=== PATIENT | female | born 1990 | race Caucasian/White ===

== ENCOUNTER 2021-01-12 11:13 | Emergency (ER) | payer OTHER ==
[2021-01-12 12:18] LABS: HEMOGLOBIN 14.5 gm/dl (12.3-15.3); RED BLOOD COUNT 4.69 M/UL (4.00-5.10); WHITE BLOOD COUNT 6.9 K/UL (4.5-11.0)
[2021-01-12 12:38] LABS: BUN/CREATININE RATIO 9 (0-10)
== END 2021-01-12 18:27 | disposition home or self-care (01) ==
LOC: ER1 11:13
PROVIDERS: Emergency Medicine
DX: G40.909 Epilepsy, unspecified, not intractable, without status epilepticus (principal); Z20.822 Contact with and (suspected) exposure to COVID-19
CPT/HCPCS: 0240U; 71045; 80053; 80307; 81001; 83605; 84703; 85025; 85610; 85730; 93005; 96374; 99285; J1885; Q9967

== ENCOUNTER 2021-03-10 00:47 | Emergency (ER) | payer OTHER ==
[2021-03-10 01:37] LABS: HEMOGLOBIN 14.4 gm/dl (12.3-15.3); RED BLOOD COUNT 4.54 M/UL (4.00-5.10); WHITE BLOOD COUNT 10.2 K/UL (4.5-11.0)
[2021-03-10 01:54] LABS: BUN/CREATININE RATIO 14 (0-10)
[2021-03-10] MEDS ORDERED: KEPPRA500 MG PO (04:00)
== END 2021-03-10 04:11 | disposition home or self-care (01) ==
LOC: ER1 00:47
PROVIDERS: Family Medicine
DX: G40.909 Epilepsy, unspecified, not intractable, without status epilepticus (principal); Z79.899 Other long term (current) drug therapy
CPT/HCPCS: 70450; 80053; 80307; 81001; 84703; 85025; 93005; 99284

== ENCOUNTER 2021-03-24 08:13 | Emergency (ER) | payer OTHER ==
[~2021-03-24 08:13] MED LIST: KEPPRA500 MG PO
[2021-03-24 08:57] LABS: HEMOGLOBIN 13.1 gm/dl (12.3-15.3); RED BLOOD COUNT 4.14 M/UL (4.00-5.10); WHITE BLOOD COUNT 7.4 K/UL (4.5-11.0)
[2021-03-24 09:30] LABS: BUN/CREATININE RATIO 13 (0-10)
[2021-03-24] MEDS ORDERED: BENTYL 10MG CAP10 MG PO (11:01)
[2021-03-24] MEDS ORDERED: ZOFRAN ODT 4 MG4 MG PO (11:01)
[2021-03-24] MEDS ORDERED: IBU800 MG PO (11:01)
[2021-03-24] MEDS ORDERED: PEPCID20 MG PO (11:01)
== END 2021-03-24 11:30 | disposition home or self-care (01) ==
LOC: ER1 08:13
PROVIDERS: Nurse Practitioner
DX: R10.11 Right upper quadrant pain (principal); R10.12 Left upper quadrant pain; R11.0 Nausea; Z90.89 Acquired absence of other organs; Z90.49 Acquired absence of other specified parts of digestive tract; Z79.899 Other long term (current) drug therapy
CPT/HCPCS: 80053; 81001; 83605; 83690; 84703; 85025; 96374; 96375; 99284; J1885; J2405; Q9967

== ENCOUNTER 2021-03-30 02:17 | Emergency (ER) | payer OTHER ==
[~2021-03-30 02:17] MED LIST changes: +BENTYL 10MG CAP10 MG PO; +IBU800 MG PO; +PEPCID20 MG PO; +ZOFRAN ODT 4 MG4 MG PO
[2021-03-30] MEDS ORDERED: KEPPRA1000 MG PO (03:55)
== END 2021-03-30 06:26 | disposition home or self-care (01) ==
LOC: ER1 02:17
DX: G40.409 Other generalized epilepsy and epileptic syndromes, not intractable, without status epilepticus (principal); Z90.49 Acquired absence of other specified parts of digestive tract
CPT/HCPCS: 99284

== ENCOUNTER 2021-04-09 09:01 | Emergency (ER) | payer OTHER ==
[~2021-04-09 09:01] MED LIST changes: +KEPPRA1000 MG PO
[2021-04-09 09:38] LABS: HEMOGLOBIN 13.4 gm/dl (12.3-15.3); RED BLOOD COUNT 4.22 M/UL (4.00-5.10); WHITE BLOOD COUNT 6.8 K/UL (4.5-11.0)
[2021-04-09 10:03] LABS: BUN/CREATININE RATIO 10 (0-10)
[2021-04-09] MEDS ORDERED: IBUPROFEN800 MG PO (10:38)
[2021-04-09] MEDS ORDERED: COLACE 100MG C100 MG PO (10:38)
[2021-04-09] MEDS ORDERED: ZOFRAN ODT 4 MG4 MG PO (10:38)
[2021-04-09] MEDS ORDERED: BENTYL 10MG CAP10 MG PO (10:38)
== END 2021-04-09 10:50 | disposition home or self-care (01) ==
LOC: ER1 09:01
PROVIDERS: Emergency Medicine
DX: R10.9 Unspecified abdominal pain (principal); R11.2 Nausea with vomiting, unspecified
CPT/HCPCS: 80053; 81001; 84702; 84703; 85025; 96374; 99284; J2405; J7030

== ENCOUNTER 2021-04-15 02:46 | Emergency (ER) | payer OTHER ==
[~2021-04-15 02:46] MED LIST changes: +COLACE 100MG C100 MG PO; +IBUPROFEN800 MG PO
[2021-04-15 04:12] LABS: HEMOGLOBIN 13.5 gm/dl (12.3-15.3); RED BLOOD COUNT 4.27 M/UL (4.00-5.10); WHITE BLOOD COUNT 7.3 K/UL (4.5-11.0)
== END 2021-04-15 07:43 | disposition home or self-care (01) ==
LOC: ER1 02:46
PROVIDERS: Physician Assistant Medical
DX: G40.309 Generalized idiopathic epilepsy and epileptic syndromes, not intractable, without status epilepticus (principal)
CPT/HCPCS: 70450; 71045; 80053; 80175; 81001; 84702; 85025; 93005; 96374; 99285; J2405

== ENCOUNTER 2021-04-19 00:34 | Emergency (ER) | payer OTHER | END 2021-04-19 03:45 | disposition left against medical advice (07) | LOC: ER1 00:34 | DX: Z53.21 Procedure and treatment not carried out due to patient leaving prior to being seen by health care provider (principal) ==

== ENCOUNTER 2021-04-28 09:45 | Emergency (ER) | payer OTHER ==
[2021-04-28 11:00] LABS: HEMOGLOBIN 14.9 gm/dl (12.3-15.3); RED BLOOD COUNT 4.73 M/UL (4.00-5.10); WHITE BLOOD COUNT 7.2 K/UL (4.5-11.0)
[2021-04-28 11:23] LABS: BUN/CREATININE RATIO 14 (0-10)
== END 2021-04-28 11:35 | disposition home or self-care (01) ==
LOC: ER1 09:45
PROVIDERS: Physician Assistant
DX: R10.12 Left upper quadrant pain (principal); R10.32 Left lower quadrant pain; F84.0 Autistic disorder; Z90.49 Acquired absence of other specified parts of digestive tract; Z90.89 Acquired absence of other organs
CPT/HCPCS: 80053; 81001; 83690; 84703; 85025; 99284

== ENCOUNTER → 2021-05-06 | Outpatient (CLI) | payer OTHER ==
[2021-05-06 09:03] LABS: HEMOGLOBIN 13.9 gm/dl (12.3-15.3); RED BLOOD COUNT 4.44 M/UL (4.00-5.10); WHITE BLOOD COUNT 6.9 K/UL (4.5-11.0)
[2021-05-06 09:25] LABS: BUN/CREATININE RATIO 13 (0-10)
== END ==
LOC: LAB 08:36
DX: Z13.9 Encounter for screening, unspecified (principal); Z51.81 Encounter for therapeutic drug level monitoring; Z79.899 Other long term (current) drug therapy
CPT/HCPCS: 80053; 80061; 84443; 85027

== ENCOUNTER → 2021-05-11 | Outpatient (CLI) | payer OTHER | LOC: LAB 16:36 | DX: Z32.00 Encounter for pregnancy test, result unknown (principal) | CPT/HCPCS: 36415; 84702; 84703 ==